=== PATIENT | female | born 1990 ===

== ENCOUNTER 2018-11-02 09:58 | Emergency (ER) | payer SELFPAY ==
[2018-11-02] MEDS ORDERED: 0.9 % SODIUM CHLORIDE 1,000 ML BAG IV ONE (10:08)
[2018-11-02] MEDS ORDERED: ONDANSETRON HCL IV 4 MG/2 ML VIAL IVP ONE (10:09)
--- NOTE | 2018-11-02 10:13 | Emergency Department Record ---
History of Present Illness - General Stated complaint: WEAK/NOT FEELING WELL Time Seen by Provider: 11/02/18 10:01 Source: Patient, Family Mode of Arrival: Ambulatory Limitations: No limitations - History of Present Illness Initial comments: 28 yo female presents with about 10-11 days of diarrhea. She and other family ate at a [employer] restaurant in [place] on Father's Day. Three of them developed nausea, vomiting, and diarrhea. Her diarrhea has continued. She is having about 4 watery stools a day. No fever or blood. No recent trips, travels, camping or antibiotics. 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 She has become weak and shaky working in the hot conditions. He brother sent a stool sample to the health department without any known results. She is normally healthy. NO PCP. No abdominal surgery history. MD complaint: Diarrhea, Nausea, Vomiting -: Days(s) (10) Description of Vomiting: Watery Description of Diarrhea: Water Location: Other (mild cramps) Radiation: None Severity: Moderate Quality: Other Consistency: Intermittent Improves with: None Worsens with: Eating Context: Sick contacts Associated Symptoms: Loss of appetite - Related Data Previous Rx's Medication Instructions Recorded Loperamide HCl [Imodium A-D] 2 mg PO Q6H #10 tablet 11/02/18 Ondansetron [Zofran Odt] 4 mg PO Q8H #15 tab.rapdis 11/02/18 Allergies Allergy/AdvReac Type Severity Reaction Status Date / Time bee venom protein (honey bee) Allergy RASH Verified 11/02/18 10:13 Review of Systems Constitutional: Reports: Malaise, Weakness. Denies: Chills, Fever Eyes: Denies: Eye discharge, Eye pain, Photophobia, Vision change ENT: Denies: Congestion, Throat pain Respiratory: Denies: Cough, Dyspnea, Hemoptysis, Wheezes Cardiovascular: Denies: Chest pain, Palpitations, Syncope Endocrine: Reports: Fatigue. Denies: Polydipsia, Polyuria Gastrointestinal: Reports: Diarrhea, Nausea, Vomiting. Denies: Abdominal pain, Constipation, Hematemesis, Hematochezia, Melena Genitourinary: Denies: Dysuria, Urgency Musculoskeletal: Denies: Arthralgia, Back pain, Myalgia Skin: Denies: Bruising, Change in color, Rash Neurological: Reports: Weakness. Denies: Headache Psychiatric: Denies: Anxiety Hematological/Lymphatic: Denies: Easy bleeding, Easy bruising Physical Exam - General General Appearance: Alert, Oriented x3, Cooperative, No acute distress Limitations: No limitations - Head Head exam: Atraumatic, Normal inspection - Eye Eye exam: Normal appearance, PERRL. negative: Conjunctival injection, Scleral icterus - ENT ENT exam: Normal exam, Mucous membranes moist Ear exam: Normal external inspection Nasal Exam: Normal inspection Mouth exam: Normal external inspection Teeth exam: Normal inspection Throat exam: Normal inspection - Neck Neck exam: Normal inspection. negative: Lymphadenopathy - Respiratory Respiratory exam: Normal lung sounds bilaterally, Decreased breath sounds. negative: Rhonchi, Stridor, Wheezes - Cardiovascular Cardiovascular Exam: Normal rhythm, Tachycardia. negative: Diastolic murmur, Irregular rhythm, Systolic murmur Peripheral Pulses: 2+: Radial (R), Radial (L) - GI/Abdominal GI/Abdominal exam: Soft, Normal bowel sounds. negative: Distended, Guarding, Rebound, Rigid, Tenderness - Rectal Rectal exam: Deferred - exam: Deferred - Extremities Extremities exam: Normal inspection. negative: Pedal edema - Back Back exam: Denies: CVA tenderness (R), CVA tenderness (L) - Neurological Neurological exam: Alert, Oriented X3 - Psychiatric Psychiatric exam: Normal affect, Normal mood - Skin Skin exam: Dry, Intact, Normal color, Warm Course - Reevaluation(s) Reevaluation #1: 11/02/18 10:51 The labs results were reviewed There are no acute significant abnormalities of the CBC There are no acute significant abnormalities of the CMP The UA was reviewed. No signs of infection or significant acute abnormality The HCG is negative 11/02/18 10:54 No diarrhea to this point in the ED 2nd liter started 11/02/18 11:30 We discussed the results of the tests and questions were answered at the time of discharge. The patient is doing well and is comfortable with DC. DC vitals were reviewed. We discussed at length reasons to immediately return to the ED as well as close follow up. The patient will call the PCP for close follow up of this ED visit to review this visit and the tests performed 11/02/18 11:35 No diarrhea in the ED. An outpatient lab ordered was provided for stool studies. Medical Decision Making - Lab Data Result diagrams: 11/02/18 10:20 11/02/18 10:20 Disposition Disposition: Discharge Clinical Impression: Dehydration Diarrhea Qualifiers: Diarrhea type: unspecified type Qualified Code(s): R19.7 - Diarrhea, u nspecified Disposition: Home, Self-Care Condition: (1) Good Instructions: Acute Diarrhea (ED) Additional Instructions: Call for a new doctor for the next available follow up appointment Return to the ER for a recheck if worse, any new concerns or questions Take the prescriptions provided as directed Bring the stool sample with the lab order to the hospital if you produce a sample at home Prescriptions: Loperamide HCl [Imodium A-D] 2 mg PO Q6H #10 tablet Ondansetron [Zofran Odt] 4 mg PO Q8H #15 tab.rapdis Forms: Patient Portal Access Time of Disposition: 11:35 Quality - Quality Measures Quality Measures: N/A - Blood Pressure Screening Does Patient Have Any of the Following: No Blood Pressure Classification: Pre-Hypertensive BP Reading Systolic Measurement: 136 Diastolic Measurement: 89 Screening for High Blood Pressure: < Pre-Hypertensive BP, F/U Documented > [[id number]] Pre-Hypertensive Follow-up Interventions: Referral to alternative/primary care provider.
[2018-11-02 10:26] LABS: ABSOLUTE NEUTROPHIL COUNT 3.68; BASO % 0.5 % (0-6); EOS % 1.8 % (0-6); GRAN % 55.8 % (47-80); HEMATOCRIT 39.4 % (35.0-47.0); LYMPH % 33.9 % (16-45); PLATELET COUNT 277 K/uL (130-400); RED BLOOD COUNT 4.33 M/uL (3.80-5.40); RED CELL DISTRIBUTION WIDTH 13.6 % (11.5-14.5); WHITE BLOOD COUNT W/O DIFF 6.6 K/uL (4.2-12.2)
[2018-11-02 10:36] LABS: BLOOD UREA NITROGEN 9 mg/dL (6-20); CREATININE 0.6 mg/dL (0.5-0.9); EST GLOMERULAR FILTRATION RATE > 60 mL/min
[2018-11-02 10:37] LABS: LIPASE 43 U/L (13-60)
[2018-11-02 10:39] LABS: GLUCOSE,RANDOM 77 mg/dL (74-109)
[2018-11-02 10:39] LABS: URINE APPEARANCE CLEAR; URINE BILIRUBIN NEGATIVE (NEGATIVE); URINE BLOOD NEGATIVE (NEGATIVE); URINE COLOR YELLOW; URINE GLUCOSE (UA) NEGATIVE (NEGATIVE); URINE KETONE NEGATIVE (NEGATIVE); URINE LEUKOCYTE ESTERASE NEGATIVE (NEGATIVE); URINE NITRITE NEGATIVE (NEGATIVE); URINE PROTEIN NEGATIVE (NEGATIVE); URINE UROBILINOGEN 0.2 E.U./dL (0.20 - 1.00)
[2018-11-02 10:40] LABS: HCG,QUALITATIVE URINE NEGATIVE (NEGATIVE)
[2018-11-02 10:41] LABS: ALB/GLOB RATIO 1.7 (1.1-1.8); ALBUMIN 4.4 g/dL (4.0-5.0); ALT/SGPT 24 U/L (<33); AST/SGOT 27 U/L (10.0-35.0)
[2018-11-02 10:42] LABS: ALKALINE PHOSPHATASE 73 U/L (35-104)
== END 2018-11-02 11:51 | disposition home or self-care (01) ==
LOC: ER 09:58
DX: E86.0 Dehydration (principal); R11.2 Nausea with vomiting, unspecified; R19.7 Diarrhea, unspecified; R53.1 Weakness; F17.210 Nicotine dependence, cigarettes, uncomplicated
CPT/HCPCS: 99284 ×2; 96374; 96361; 83690; 85025; 80053; 81003; 81025; J2405; J7030